=== PATIENT | female | born 1955 | race Caucasian/White ===

== ENCOUNTER 2020-08-07 07:17 | Observation (INO) | payer MEDICARE ==
[2020-08-06 14:01] LABS: BASOPHILS # (AUTO) 0.1 (0.0-0.1); BASOPHILS % 0.9 % (0.0-1.0); EOSINOPHILS # (AUTO) 0.2 (0.0-0.4); EOSINOPHILS % 3.7 % (0.0-6.0); HEMATOCRIT 40.2 % (34.2-44.1); LYMPHOCYTES # (AUTO) 1.3 (1.0-3.2); LYMPHOCYTES % 23.8 % (18.0-39.1); MEAN CORPUSCULAR HEMOGLOBIN 31.6 pg (28-32); MEAN CORPUSCULAR HGB CONC 32.3 g/dL (31-35); MEAN CORPUSCULAR VOLUME 97.8 fL (81-99); MONOCYTES # (AUTO) 0.6 (0.2-0.8); MONOCYTES % 11.1 % (4.4-11.3); NEUTROPHILS # (AUTO) 3.3 (2.1-6.9); NEUTROPHILS % 60.1 % (38.7-80.0); PLATELET COUNT 150 x10e3/uL (140-360); RED BLOOD COUNT 4.11 x10e6/uL (3.6-5.1); RED CELL DISTRIBUTION WIDTH 13.8 % (11.7-14.4)
[2020-08-06 14:16] LABS: INR 0.91; PARTIAL THROMBOPLASTIN TIME 30.2 seconds (23.8-35.5); PROTHROMBIN TIME 12.8 seconds (11.9-14.5)
[2020-08-06 14:21] LABS: ANION GAP 10.7 mmol/L (8-16); CALCIUM 8.9 mg/dL (8.4-10.2); CREATININE, SERUM 1.13 mg/dL (0.57-1.11); POTASSIUM 4.7 mmol/L (3.5-5.1)
[~2020-08-07] VITALS: Ht 172.7 cm; Wt 91.2 kg
[~2020-08-07 07:17] MED LIST: ASPIRIN325 MG PO; BACLOFEN10 MG PO; BUPROPION HCL100 MG PO; GLIPIZIDE5 MG PO; HYDROCODON-ACE1 EA11 PO; KLOR-CON 1010 MEQ PO; LISINOPRIL10 MG PO; MELOXICAM7.5 MG PO; METHOCARBAMOL750 MG PO; NABUMETONE500 MG PO; NEURONTIN300 MG PO; NORCO 7.5-3251 EACH PO; PAXIL40 MG PO; TRAZODONE HCL100 MG PO
[2020-08-07] MEDS ORDERED: LIDOCAINE HCL (LTA) 4 ML SOLN ONE (07:18)
[2020-08-07] MEDS ORDERED: ACETAMINOPHEN 1000 MG/100 ML 100 ML IV ONE (07:18)
[2020-08-07] MEDS ORDERED: IBUPROFEN 800MG/ 200ML 200 ML IV ONE (07:18)
[2020-08-07] MEDS ORDERED: CEFAZOLIN SOD 1 GM/NS 50ML 100 ML IV ONE (08:37)
[2020-08-07] MEDS ORDERED: LIDOCAINE 1% W/EPINEPHRINE 20 ML VIAL ONE (09:37)
[2020-08-07] MEDS ORDERED: THROMBIN FOR SOLN 5,000 UNIT VIAL ONE (09:38)
[2020-08-07] MEDS ORDERED: VANCOMYCIN HCL 1 GM VIAL ONE (09:38)
[2020-08-07] MEDS ORDERED: HYDROCODONE/APAP 5MG-325MG TAB PO SCH (11:15)
[2020-08-07] MEDS ORDERED: PROMETHAZINE HCL (IM) 25 MG/ML VIAL IM PRN (11:15)
[2020-08-07] MEDS ORDERED: HYDROMORPHONE 2MG/ML 2 MG/ML ML IV PRN (11:15)
[2020-08-07] MEDS ORDERED: MAGNESIUM/ALUMINUM/SIMETHICONE 30 ML UDC PO PRN (11:15)
[2020-08-07] MEDS ORDERED: ACETAMINOPHEN 325 MG TAB PO PRN (11:15)
[2020-08-07] MEDS ORDERED: MORPHINE SULFATE 5 MG/ML VIAL IM PRN (11:15)
[2020-08-07] MEDS ORDERED: ONDANSETRON HCL INJ 2MG/ML 2ML 2 MG/ML VIAL IV PRN (11:15)
[2020-08-07] MEDS ORDERED: CARISOPRODOL 350 MG TAB PO PRN (11:15)
[2020-08-07] MEDS ORDERED: HYDROCODON-ACE1 EA12 PO (11:19)
[2020-08-07] MEDS ORDERED: GLYCOPYRROLATE INJ 0.2 MG/ML VIAL ONE (12:44)
[2020-08-07] MEDS ORDERED: ONDANSETRON HCL INJ 2MG/ML 2ML 2 MG/ML VIAL ONE (12:44)
[2020-08-07] MEDS ORDERED: NEOSTIGMINE 1 MG/ML 10ML VIAL ONE (12:44)
[2020-08-07] MEDS ORDERED: SEVOFLURANE INHAL SOLN 250 ML PEN BTL ONE (12:44)
[2020-08-07] MEDS ORDERED: ROCURONIUM BROMIDE 10 MG/ML 5ML VIAL IV ONE (12:44)
[2020-08-07] MEDS ORDERED: LIDOCAINE HCL 2% LOCAL INJ 5 ML SDV VIAL INJ ONE (12:44)
[2020-08-07] MEDS ORDERED: PROPOFOL IV EMULSION 10 MG/ML 20 ML VIAL ONE (12:44)
[2020-08-07] MEDS ORDERED: DEXAMETHASONE SOD PHOS INJ 4 MG/ML VIAL ONE (12:44)
[2020-08-07] MEDS ORDERED: LIDOCAINE HCL 2% JELLY 5 ML TUBE ONE (12:44)
[2020-08-07] MEDS ORDERED: FENTANYL CITRATE/PF 100MCG/2 ML INJ ONE ×2 (13:29)
[2020-08-07] MEDS ORDERED: MIDAZOLAM HCL 2 MG/2 ML VIAL ONE (13:29)
[2020-08-07] MEDS ORDERED: METHOCARBAMOL 750 MG TAB PO PRN (14:00)
[2020-08-07 14:14] VITALS: BP 126/81
[2020-08-07 14:28] VITALS: BP 126/81
[2020-08-07] MEDS: LACTATED RINGER'S 1,000 ML IV SCH ×2 (14:30→18:41)
[2020-08-07] MEDS ORDERED: GABAPENTIN 300 MG CAP PO SCH (15:00)
[2020-08-07] MEDS: OXYCODONE/ACETAMINOPHEN 5-325 1 EACH TABLET PO PRN (15:06)
[2020-08-07 16:52] VITALS: BP 121/69
[2020-08-07] MEDS ORDERED: BUPROPION HCL 100 MG TAB PO SCH (17:00)
[2020-08-07] MEDS ORDERED: NON-FORMULARY MEDICATION (Nabumetone 500 MG) PO SCH (17:00)
[2020-08-07] MEDS: CEFAZOLIN SOD 1 GM/NS 50ML 50 ML IV SCH (18:05)
[2020-08-07] MEDS: METHOCARBAMOL 750 MG TAB PO SCH ×2 (18:06→21:54)
[2020-08-07 20:00] VITALS: BP 116/66
[2020-08-07 21:00] VITALS: BP 116/66
[2020-08-07] MEDS ORDERED: ZOLPIDEM TARTRATE 5 MG TAB PO PRN (21:00)
[2020-08-07] MEDS ORDERED: TRAZODONE HCL 50 MG TAB PO SCH (21:00)
[2020-08-07] MEDS ORDERED: LISINOPRIL 10 MG TAB PO SCH (21:00)
[2020-08-07] MEDS: BUPROPION HCL 100 MG TAB PO SCH (21:54)
[2020-08-07] MEDS: GABAPENTIN 300 MG CAP PO SCH (21:54)
[2020-08-08] VITALS: BP 101/53
[2020-08-08] MEDS: METHOCARBAMOL 750 MG TAB PO SCH ×3 (02:00→10:04)
[2020-08-08] MEDS: CEFAZOLIN SOD 1 GM/NS 50ML 50 ML IV SCH ×2 (02:00→10:04)
[2020-08-08] MEDS: LACTATED RINGER'S 1,000 ML IV SCH (03:54)
[2020-08-08 04:00] VITALS: BP 106/57
[2020-08-08 07:42] VITALS: BP 120/58
[2020-08-08] MEDS: BUPROPION HCL 100 MG TAB PO SCH (08:32)
[2020-08-08] MEDS: GABAPENTIN 300 MG CAP PO SCH (08:32)
[2020-08-08] MEDS: OXYCODONE/ACETAMINOPHEN 5-325 1 EACH TABLET PO PRN (08:35)
[2020-08-08] MEDS ORDERED: MELOXICAM 7.5 MG TAB PO SCH (09:00)
[2020-08-08] MEDS ORDERED: PAROXETINE HCL 20 MG TAB PO SCH (09:00)
[2020-08-08 11:35] VITALS: BP 98/62
== END 2020-08-08 15:31 | disposition home or self-care (01) ==
LOC: OR 07:17 → PACU V 11:17 → MED/SURG 14:05
PROVIDERS: ADMIT Neurological Surgery; ATTEND Neurological Surgery
DX: M48.062 Spinal stenosis, lumbar region with neurogenic claudication (principal); E11.9 Type 2 diabetes mellitus without complications; I10 Essential (primary) hypertension; Z86.19 Personal history of other infectious and parasitic diseases; Z01.810 Encounter for preprocedural cardiovascular examination; Z01.812 Encounter for preprocedural laboratory examination; Z01.818 Encounter for other preprocedural examination; Z20.822 Contact with and (suspected) exposure to COVID-19; Z88.5 Allergy status to narcotic agent; J44.9 Chronic obstructive pulmonary disease, unspecified; F32.9 Major depressive disorder, single episode, unspecified; F41.9 Anxiety disorder, unspecified
CPT/HCPCS: 36415; 63047; 63048; 71046; 72020; 80048; 85025; 85610; 85730; 86850; 86900; 88304; 88311; 93005; G0378 ×2; J0131; J0690 ×2; J1100; J2001 ×2; J2250; J2405; J2704; J2710; J3010; J3370; U0002